=== PATIENT | male | born 1965 ===

== ENCOUNTER 2017-02-19 09:59 | Emergency (ER) | payer OTHER ==
[2017-02-19] MEDS ORDERED: TDAP Vaccine 0.5 mL Syr IM ONE (10:28)
[2017-02-19] MEDS ORDERED: Lidocaine 1%/Epinephrine 1:100000 30 ml vial IJ ONE (10:30)
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
[2017-02-19] MEDS ORDERED: Collagen Hemostat Powder MM ONE (10:49)
[2017-02-19] MEDS ORDERED: Labetalol 5 mg/ml Inj 20ML IV STA (11:41)
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
[2017-02-19] MEDS: Morphine 2 mg/ml ISec IVP STA ×2 (13:39→13:47)
[2017-02-19 13:40] VITALS: RESP 19
[2017-02-19] MEDS ORDERED: Morphine 4 mg/ml ISec IVP STA (14:24)
[2017-02-19] MEDS ORDERED: Morphine 2 mg/ml ISec ONE (14:25)
[2017-02-19] MEDS ORDERED: Morphine 2 mg/ml ISec IVP STA (14:29)
[2017-02-19 14:30] VITALS: BP 213/119; PULSE 78; TEMP 98.2; O2SAT 98
== END 2017-02-19 14:36 | disposition short-term general hospital (02) ==
LOC: ED 09:59
DX: S02.601A Fracture of unspecified part of body of right mandible, initial encounter for closed fracture (principal); S02.642A Fracture of ramus of left mandible, initial encounter for closed fracture; Y08.89XA Assault by other specified means, initial encounter; Y93.89 Activity, other specified; Y92.410 Unspecified street and highway as the place of occurrence of the external cause; Z23 Encounter for immunization
CPT/HCPCS: 70480; 90471; 90715; 96372; 96374; 96375; 99285; J0360; J1885; J2270